=== PATIENT | male | born 1980 | race Caucasian/White ===

== ENCOUNTER 2016-08-27 09:00 | Outpatient (RCR) | payer BC ==
--- NOTE | 2016-08-21 14:38 | PT/OT/ST INITIAL EVALUATION ---
Department of Health and Human Services Form Approved [facility] Care Financing Administration OMB No. [id number] PLAN OF CARE/ASSESSMENT FOR OUTPATIENT REHABILITATION (Complete for Initial Claims Only) 1. PATIENT'S NAME Ej Elena 2. ACC # [id number] 3. [facility] [id number] 4. PROVIDER NO. [id number] 5. TYPE: PT 6. PRIOR HOSPITALIZATION None 7. PRIMARY DX Lumbar strain 8. SECONDARY DX Low back pain 9. ONSET DATE 08/17/2016 10. REFERRAL DATE 08/19/2016 11. SOC. DATE 08/20/2016 12. TIME OF EVAL 10:00 a.m. 12. REFERRING PHYSICIAN Dr. Chucky Koehler 13. CHARGES/UNITS Evaluation, Therex, manual therapy, and interferential. 14. G CODES NA 15. PRIOR LEVEL OF FUNCTION; PERTINENT HISTORY (Prior therapy results, reason for referral.) S: Reason for referral: The patient was referred to physical therapy by Dr. Koehler with a lumbar strain. The patient reports that he was moving rock with a shovel on Friday and aggravated his back. He notes that he has been having increased pain with any type of bending activity. He also has pain when going from sitting to standing. The patient reports he does get some relief when resting and does not have difficulty sleeping at night. Occupational and social health history: The patient works as a banker. Leisure activities: Includes yard work and running. Activity level: Overall activity level is high. Personal health rating: Rates overall health as fair. Pain level: Current pain rating is 9/10. Past medical history: Knee scope. Current medications: Ibuprofen Patient's Goal: The patient's goal for therapy is to heal his back. 16. INITIAL ASSESSMENT/SAFETY PRECAUTIONS/MEDICAL COMPLICATIONS (Level of function at start of care. Be specific, use objective measures, list problems.) O: APPEARANCE, OBSERVATION AND GAIT: The patient is a tall, slender 35-year-old male. He demonstrates slight forward flexed posture and a slight forward head. PALPATION: Tenderness to palpation at bilateral sacroiliac joint region and bilateral glutes. In supine the patient demonstrated a left ASIS was lower and left leg was 3/4 of an inch longer. The patient also demonstrated positive sitting straight leg raise with pain bilaterally. RANGE OF MOTION/FLEXIBILITY: Trunk range of motion flexion 40%, extension 60%, bilateral side bending 60% and rotation was normal limits. Hamstring flexibility 45 degrees bilaterally. Piriformis flexibility was minimally limited bilaterally. STRENGTH: Lower extremity strength was 5/5 manual muscle test and abdominal strength was fair. TODAY'S TREATMENT: Treatment included initial evaluation followed by muscle energy technique to correct pelvic malalignment. Interferential with moist heat was performed to the patient's lumbosacral region. The patient was then instructed on a home exercise program and Kinesiotherapy taping was performed to his lumbosacral region. 17. INITIAL POC: (Specify procedures, modalities, short and longterm goals) A: The patient demonstrates low back strain with left SI joint dysfunction. PROGNOSIS: The patient is a good candidate for physical therapy to decrease pain and muscle guarding and progress with flexibility and strength. SHORT TERM GOALS: 1. The patient to be compliant with home exercise program in 2 weeks. 2. The patient to demonstrate full trunk range of motion without pain in 3 weeks. 3. The patient to demonstrate equal pelvic alignment and leg length in 2 weeks. 4. The patient to report that he is able to perform normal daily activities without having pain at low back region in 4 weeks. P: The patient will be seen 2 times a week over the course of the next 4 weeks. Treatment to include modalities to decrease pain and inflammation. We will progress the patient with range of motion, flexibility, stabilization, and strengthening activities as tolerated. We will continue to educate the patient on overall diagnosis and the importance of body mechanics and posture when performing activities. 18. FREQUENCY 2 times per week 19. DURATION 4 weeks 20. FUNCTIONAL LEVEL (End of claim period) 21. PHYSICIAN SIGNATURE ? ON FILE OR ENTER HERE: 22. DATE: I certify the need for these services furnished under this plan of care and if for partial hospitalization. 23. CERTIFICATION FROM THROUGH FORM [id number]
[~2016-08-27 09:00] MED LIST: CETI10TA20 PO; PRED20TA PO; RANI75TA21 PO; SERT25TA PO
== END 2016-09-09 13:07 | disposition home or self-care (01) ==
LOC: PT 09:00
PROVIDERS: ATTEND Family Medicine
DX: S39.012D Strain of muscle, fascia and tendon of lower back, subsequent encounter (principal); X50.0XXD Overexertion from strenuous movement or load, subsequent encounter
CPT/HCPCS: 97110; 97140; 97161; G0283; 97014

== ENCOUNTER → 2016-09-05 | Outpatient (CLI) | payer BC ==
[2016-09-05 17:36] VITALS: BP 120/69
--- NOTE | 2016-09-05 17:36 | Urgent Care T Sheet Gen (E) ---
Intake General Temperature (Fahrenheit): 98.7 Pulse: 71 Blood Pressure Systolic: 120 Blood Pressure Diastolic: 69 Respirations: 16 SPO2: 97 Description of Symptoms Patient presents with a white spot to the R tonsil. Patient states that side of his throat started to ache earlier therefore he looked in the mirror and saw a white spot. no pain except for around the area. no fever. no cough or congestion. patient has state track this and wants to make sure he isn' t contagious. History of Present Illness Allergies: Coded Allergies: Penicillins (Verified Allergy, Unknown, Hives, 07/27/13) Home Meds Reported Medications Cetirizine HCl (Zyrtec)10 Mg [id number] Mg PO DAILY 07/27/13 Ranitidine HCl (Zantac)75 Mg [id number] Mg PO DAILY 07/27/13 Prednisone 20 Mg [id number] Mg PO DAILY 07/27/13 Sertraline HCl (Zoloft)25 Mg Fvyzin15.5 Mg PO DAILY 07/27/13 Respiratory Constitutional Symptoms: No syptoms reported EENTM: Throat pain Respiratory: No symptoms reported Cardiovascular: No symptoms reported Gastrointestinal/Abdominal: No symptoms reported All Other Systems Reviewed Remaining Systems: All other systems reviewed with negative findings Past [id number]-[id number] Hx Surgeries/Hospitalizations Hospitalization/Surgery Hx: KNEE LT, STAPH INFECTION Respiratory Respiratory History: None Cardiovascular Cardiovascular History: None Reproductive System Sexually Transmitted Diseases: No Gastrointestinal GI/Endocrine History: None Diabetes Diabetes: No HEENT Impaired Vision: Glasses Hearing Impaired: None Integumentary Integumentary History: Recent skin changes Comment: STARTED 07/24/13 Psychosocial Behavior Disorders: None Physical Exam Physical Exam General Appearance: WD/WN No apparent distress Eyes, Ears, Nose, Throat Ex: TMs normal Pharynx normal (there is a large tonsil stone noted on the R side. I used a cotton tipped applicator and gently removed the stone. patient tolerated procedure.) Other (nose is clear) Neck Exam: SuppleNo Lymphadenopathy Respiratory Exam: Lungs clear Normal breath sounds Cardiovascular Exam: Regular rate, rhythm Departure Urgent Care Impression Impression: Primary Impression: Tonsil stone Departure Disposition: HOME OR SELF-CARE Condition: Stable Referrals: Chucky Koehler MD (PCP) Additional Instructions: Tonsil stone was removed without issue. No need to check for strep as his throat was clear otherwise. May go to State track without issue Return as needed Patient understands DC instructions. All questions were answered. End of report . MAYANK DOUGHERTY September 05, 2016 17:36
== END ==
LOC: MHUC 17:15
PROVIDERS: ATTEND Physician Assistant
DX: J35.8 Other chronic diseases of tonsils and adenoids (principal)
CPT/HCPCS: 99213